=== PATIENT | female | born 1980 | race Caucasian/White ===

== ENCOUNTER 2016-07-02 15:15 | Observation (INO) | payer MEDICARE ==
[2016-07-02 15:31] VITALS: BMI 38.7
[2016-07-02 15:34] VITALS: TEMP 98.8
[2016-07-02 16:32] LABS: ADD MANUAL DIFF? NO
--- NOTE | 2016-07-02 16:42 | ED PDOC ---
Arrival/HPI - General Historian: Patient - General Chief Complaint: Dizziness/Lightheaded Time Seen by Provider: 07/02/16 15:36 - History of Present Illness Narrative History of Present Illness (Text): 07/02/16 16:38 This is a 36yo female with history of hypertension who present with complaint of elevated BP and tingling of her b/l upper extremity. states her BP was 160/ 120 in a store this afternoon. She felt dizzy, warm and tingling sensation on her b/l arms then. Notes that she had elevated BP with her last , July last year, but have not been on antihypertensive since then. she also notes "sticking" like chest pain intermittently sicne yesterday. the last time she had chest pain was this morning. Also notes right lower leg pain. Notes chronic left lower leg pain. Did not take any medication. Denies diaphoresis, nausea, vomiting, recent travel, ABDUL, orthopnea, cough, focal neurological weakness, abdominal pain, visual changes, any other complaint. (Darryl Medrano) Past Medical History - Provider Review Nursing Documentation Reviewed: Yes - Psychiatric Hx Substance Use: No - Surgical History Hx Section: Yes Family/Social History - Physician Review Nursing Documentation Reviewed: Yes Family/Social History: Unknown Family HX Smoking Status: Never Smoked Hx Alcohol Use: No Hx Substance Use: No Allergies/Home Meds Allergies/Adverse Reactions: Allergies No Known Allergies Allergy (Verified 07/02/16 15:34) Home Medications: Home Meds Medication Instructions Recorded Confirmed No Known Home Med 07/02/16 07/02/16 Review of Systems - Physician Review All systems were reviewed & negative as marked: Yes - Review of Systems Constitutional: Normal Eyes: Normal ENT: Normal Respiratory: Normal Cardiovascular: Chest Pain Gastrointestinal: Normal Genitourinary Female: Normal Musculoskeletal: Normal Skin: Normal Neurological: Other (PAresthesia) Endocrine: Normal Hemo/Lymphatic: Normal Psychiatric: Normal Physical Exam Vital Signs Reviewed: Yes Temperature: Afebrile Blood Pressure: Hypertensive Pulse: Tachycardic Respiratory Rate: Normal Appearance: Positive for: Well-Appearing, Non-Toxic, Comfortable Pain Distress: None Mental Status: Positive for: Alert and Oriented X 3 Finger Stick Blood Glucose: 82 - Systems Exam Head: Present: Atraumatic, Normocephalic Pupils: Present: PERRL Extroacular Muscles: Present: EOMI Conjunctiva: Present: Normal Mouth: Present: Moist Mucous Membranes Neck: Present: Normal Range of Motion Respiratory/Chest: Present: Clear to Auscultation, Good Air Exchange. No: Respiratory Distress, Accessory Muscle Use Cardiovascular: Present: Regular Rate and Rhythm, Normal S1, S2. No: Murmurs Abdomen: Present: Normal Bowel Sounds. No: Tenderness, Distention, Peritoneal Signs Back: Present: Normal Inspection Upper Extremity: Present: Normal Inspection. No: Cyanosis, Edema Lower Extremity: Present: Normal Inspection. No: Edema, CALF TENDERNESS Neurological: Present: GCS=15, CN II-XII Intact, Speech Normal, Motor Func Grossly Intact, Normal Sensory Function, Normal Cerebellar Funct, Norm Deep Tendon Reflexes, Memory Normal, Other (No focal neurological deficit) Skin: Present: Warm, Dry, Normal Color. No: Rashes Psychiatric: Present: Alert, Oriented x 3, Normal Insight, Normal Concentration Medical Decision Making ED Course and Treatment: 07/05/16 12:55 First pat CE was negative and she neurological intact while in ED. Her BP however remain elevated. All imaging was negative. Pt however need admission for further evaluation and treatment. Hence history of sudden elevated BP with chest pain. Case was DW Dr. Pineda, and she accepted pt into her service. Result and plan was DW the pt and she agreed. (Darryl Medrano) - Lab Interpretations Lab Results: 07/02/16 16:13 07/02/16 16:13 Lab Results 07/02/16 17:30: Urine Color Yellow, Urine Appearance Clear, Urine pH 6.5, Ur Specific [place] 1.020, Urine Protein Trace H, Urine Glucose (UA) Negative, Urine Ketones 15 H, Urine Blood Negative, Urine Nitrate Negative, Urine Bilirubin Negative, Urine Urobilinogen 0.2, Ur Leukocyte Esterase Negative, Urine RBC 2 - 5, Urine WBC 1 - 3, Ur Epithelial Cells 0 - 2, Urine Bacteria Small 07/02/16 16:13: Sodium 137, Potassium 3.8, Chloride 101, Carbon Dioxide 27, Anion Gap 13, BUN 8, Creatinine 0.7, Est GFR ( Amer) > 60, Est GFR (Non- Af Amer) > 60, Random Glucose 83, Calcium 8.5, Magnesium 1.5 L, Total Bilirubin 0.7, AST 20, ALT 24, Alkaline Phosphatase 68, Lactate Dehydrogenase 497, Total Creatine Kinase 60, Troponin I < 0.01, Total Protein 7.5, Albumin 3.9, Globulin 3.6, Albumin/Globulin Ratio 1.1, Triglycerides 68, Cholesterol 178, LDL Cholesterol Direct 96, HDL Cholesterol 51 07/02/16 16:13: PT 10.4, INR 0.96, APTT 27.5, D-Dimer, Quantitative 0.22 07/02/16 16:13: WBC 3.1 L, RBC 4.33, Hgb 12.2, Hct 36.2, MCV 83.6, MCH 28.2, MCHC 33.7, RDW 12.4, Plt Count 232, MPV 11.4 H, Gran % 51.5, Lymph % (Auto) 40.3 H, [place] % (Auto) 7.0 H, Eos % (Auto) 0.6 L, Baso % (Auto) 0.6, Gran # 1.61 , Lymph # 1.3, [place] # 0.2, Eos # 0.0, Baso # 0.02 07/02/16 15:42: POC Glucose (mg/dL) 82 - RAD Interpretation Radiology Orders: 07/02/16 15:52 DUPLEX LOWER EXTRM VEIN BILAT [US] Stat 07/02/16 15:53 CHEST ONE VIEW [RAD] Stat 07/02/16 16:03 HEAD W/O CONTRAST [CT] Stat - Medication Orders Current Medication Orders: Discontinued Medications Acetaminophen (Tylenol 325mg Tab) 650 mg PO Q6H PRN PRN Reason: Fever >100.4 F Amlodipine Besylate (Norvasc) 5 mg PO DAILY LYNNE Aspirin (Aspirin Chewable) 81 mg PO DAILY LYNNE Aspirin (Aspirin Chewable) 81 mg PO STAT STA Stop: 07/02/16 22:42 Last Admin: 07/02/16 22:47 Dose: 81 mg Iohexol (Omnipaque 350 150 Ml) Confirm Administered Dose 150 ml .ROUTE .STK-MED ONE Stop: 07/02/16 22:53 Metoprolol Tartrate (Lopressor) Confirm Administered Dose 50 mg .ROUTE .STK-MED ONE Stop: 07/02/16 22:14 Last Admin: 07/02/16 22:28 Dose: 50 mg Metoprolol Tartrate (Lopressor) 50 mg PO STAT STA Stop: 07/02/16 22:43 Last Admin: 07/02/16 22:46 Dose: Pantoprazole Sodium (Protonix Ec Tab) 40 mg PO 0630 [facility] Disposition/Present on Arrival - Present on Arrival Any Indicators Present on Arrival: No History of DVT/PE: No History of Uncontrolled Diabetes: No Urinary Catheter: No History of Decub. Ulcer: No History Surgical Site Infection Following: None - Disposition Have Diagnosis and Disposition been Completed?: Yes Disposition Time: 21:00 - Disposition Diagnosis: Chest pain, Hypertension Disposition: HOSPITALIZED Condition: FAIR
[2016-07-02 16:46] LABS: BASO # 0.02 K/mm3 (0.0-2.0); BASO % 0.6 % (0.0-3.0); EOS % 0.6 % (1.5-5.0); GRAN # 1.61 (1.4-6.5); GRAN % 51.5 % (50.0-68.0); HEMATOCRIT 36.2 % (36.0-48.0); LYMPH # 1.3 (1.2-3.4); LYMPH % 40.3 % (22.0-35.0); MEAN CELL VOLUME 83.6 fL (80.0-105.0); MEAN CORPUSCULAR HEMOGLOBIN 28.2 pg (25.0-35.0); MEAN CORPUSCULAR HGB CONC 33.7 g/dl (31.0-37.0); MEAN PLATELET VOLUME 11.4 fl (7.0-11.0); MONO # 0.2 (0.1-0.6); PLATELET COUNT 232 10^3/uL (120.0-450.0); RED CELL DISTRIBUTION WIDTH 12.4 % (11.5-14.5); WHITE BLOOD COUNT 3.1 10^3/ul (4.5-11.0)
[2016-07-02 16:58] LABS: ALB/GLOB RATIO 1.1 (1.1-1.8); ALKALINE PHOSPHATASE 68 U/L (38-133); ALT/SGPT 24 U/L (7-56); AST/SGOT 20 U/L (15-39); BILIRUBIN,TOTAL 0.7 mg/dL (0.2-1.3); BLOOD UREA NITROGEN 8 mg/dL (7-21); CALCIUM 8.5 mg/dL (8.4-10.5); CARBON DIOXIDE 27 mmol/L (21-33); CHLORIDE 101 mmol/L (98-107); GFR AFRICAN-AMERICAN > 60; GLUCOSE,RANDOM 83 mg/dL (70-110); MAGNESIUM 1.5 mg/dL (1.7-2.2); POTASSIUM 3.8 mmol/L (3.6-5.0); SODIUM 137 mmol/L (132-148); TOTAL PROTEIN 7.5 g/dL (5.8-8.3)
[2016-07-02 16:59] LABS: INR 0.96 (0.93-1.08); PARTIAL THROMBOPLASTIN TIME 27.5 Seconds (23.7-30.8)
[2016-07-02 17:01] LABS: D DIMER 0.22 mg/L FEU (0-0.50)
[2016-07-02 17:10] LABS: TROPONIN I < 0.01 ng/mL
[2016-07-02 18:27] LABS: URINE APPEARANCE CLEAR (CLEAR); URINE COLOR YELLOW (YELLOW)
--- NOTE | 2016-07-02 18:35 | CT ---
PROCEDURE: CT HEAD WITHOUT CONTRAST. HISTORY: paresthesia/hypertension COMPARISON: None available. TECHNIQUE: Axial computed tomography images were obtained through the head/brain without intravenous contrast. Radiation dose: Total exam DLP = 725.84 mGy-cm. This CT exam was performed using one or more of the following dose reduction techniques: Automated exposure control, adjustment of the mA and/or kV according to patient size, and/or use of iterative reconstruction technique. FINDINGS: HEMORRHAGE: No intracranial hemorrhage. BRAIN: No mass effect or edema. The crow-white matter differentiation appears intact.Please note that MRI with diffusion imaging is more sensitive in the detection of acute ischemic event. VENTRICLES: No hydrocephalus. CALVARIUM: Unremarkable. PARANASAL SINUSES: Unremarkable as visualized. No significant inflammatory changes. MASTOID AIR CELLS: Unremarkable as visualized. No inflammatory changes. OTHER FINDINGS: None. IMPRESSION: No acute intracranial pathology identified.
[2016-07-02 18:38] LABS: PH,URINE 6.5 (4.7-8.0); URINE BILIRUBIN NEGATIVE (NEGATIVE); URINE BLOOD NEGATIVE (NEGATIVE); URINE GLUCOSE (UA) NEGATIVE (NEGATIVE); URINE KETONE 15 mg/dL (NEGATIVE); URINE LEUKOCYTE ESTERASE NEGATIVE Leu/uL (NEGATIVE); URINE PROTEIN TRACE mg/dL (<30 mg/dL); URINE UROBILINOGEN 0.2 E.U./dL (<1 E.U./dL)
[2016-07-02 18:40] LABS: URINE BACTERIA SMALL (NEG); URINE EPITHELIAL CELLS 0 - 2 /hpf (0-5)
--- NOTE | 2016-07-02 18:48 | RAD ---
HISTORY: chest pain COMPARISON: None available. TECHNIQUE: Chest, one view. FINDINGS: Examination limited by habitus. LUNGS: No focal consolidation. Please note that chest x-ray has limited sensitivity for the detection of pulmonary masses. PLEURA: No significant pleural effusion identified. No definite pneumothorax . CARDIOVASCULAR: The cardiomediastinal silhouette appears within normal limits of size. OSSEOUS STRUCTURES: No acute osseous abnormality identified. VISUALIZED UPPER ABDOMEN: Unremarkable. OTHER FINDINGS: None. IMPRESSION: No focal consolidation, significant pleural effusion, or definite pneumothorax identified.
--- NOTE | 2016-07-02 19:08 | US ---
HISTORY: Leg pain and swelling. Evaluate for DVT PHYSICIAN(S): Eloy Lopez MD. TECHNIQUE: Duplex sonography and color-flow Doppler with graded compression were used to evaluate the deep venous systems of both lower extremities. FINDINGS: The visualized deep venous systems of both lower extremities are sonographically normal and compressible. Normal wave forms and augmentation are seen. There is no sonographic evidence for deep venous thrombosis in the visualized segments of both lower extremities. IMPRESSION: No sonographic evidence for deep venous thrombosis in the visualized segments of both lower extremities.
[2016-07-02 20:24] VITALS: RESP 17
--- NOTE | 2016-07-02 22:18 | CARD ---
APPROVED REPORT EKG Measurement Heart [id number] <Conclusion> Normal sinus rhythm Normal ECG
[2016-07-02 22:28] VITALS: O2SAT 96
[2016-07-02 22:29] VITALS: PULSE 91
[2016-07-02 22:48] LABS: CHOLESTEROL 178 mg/dL (130-200)
[2016-07-02 22:53] VITALS: BP 152/97
--- NOTE | 2016-07-02 23:33 | HP ---
HISTORY OF PRESENT ILLNESS: The patient is a 36-year-old patient of Dr. Chin. I am covering for them. Came to Emergency Room because of feeling dizzy, lightheaded and also having some chest discom fort intermittently since morning and had tingling sensation in both legs, both arms, left more than the right and also having pain in the right leg. The patient states she was diagnosed with hypertens ion during last year, but she was never on antihypertensive. Then, this morning when she w as out and shopping, she felt weak and dizzy. She went to check her blood pressure and it was 160/12 0. Says now she is feeling dizzy and lightheaded, having tingling and warm sensation in her head and neck area. PAST MEDICAL HISTORY: She has significant past medical history of gestational hypertension. ALLERGIES: Not allergic to any medications. MEDICATIONS AT HOME: She is not taking any medication at home. SOCIAL HISTORY: She denies smoking, drinking or alcohol use or abuse. REVIEW OF SYSTEMS: Significant for having some headache, discomfort and tingling that has almost res olved. PHYSICAL EXAMINATION: GENERAL: She is awake and alert, communicative. VITAL SIGNS: She is afebrile, pulse 105, respirations 16, blood pressure 135/91. LUNGS: Bilateral fair airflow, no rhonchi or crackle. HEART: S1, S2 audible. ABDOMEN: Soft, nontender, no rebound, no guarding. NEUROLOGIC: The patient is awake and alert, communicative, moves all extremities. EXTREMITIES: Bilateral leg, no edema. LABORATORY DATA: Urinalysis is negative. WBC 3.1, hemoglobin 12, hematocrit 36, platelet 232. PT 1 0.4, INR 0.96, PTT 27.5. D-dimer 0.22. Chemistry: Sodium 137, potassium 3.9, chloride 101, CO2 of 27, BUN 8, creatinine 0.7, blood sugar of 83, magnesium 1.5. EKG is unremarkable. Bilateral leg nan ous Doppler is negative for DVT. CT scan of the head is negative. X-ray chest, no acute findings, n ormal. ASSESSMENT: 1. Chest pain, rule out coronary syndrome. 2. Uncontrolled hypertension. 3. Dizziness. PLAN: We will start patient on antihypertensives, will monitor cardiac enzymes. If she remains stab le, early discharge in a.m. Cardiology evaluation by Dr. Jenkins will be requested. Joyce Pineda MD cc: [id number] TT: 07/02/2016 23:32:47 mn
[2016-07-03] MEDS ORDERED: Pantoprazole 40 mg EC Tab PO SCH (06:30)
== END 2016-07-03 13:44 | disposition home or self-care (01) ==
LOC: ED 15:15 → MERGE 20:00 → ERH 20:00 → INTOOBSV 20:00 → ERH 22:12 → 2RSO 07-03 02:20
PROVIDERS: ADMIT Internal Medicine; ATTEND Internal Medicine
DX: R07.9 Chest pain, unspecified (principal); I10 Essential (primary) hypertension; R00.0 Tachycardia, unspecified; R40.2412 Glasgow coma scale score 13-15, at arrival to emergency department; R42 Dizziness and giddiness; R51 Headache; R20.2 Paresthesia of skin
CPT/HCPCS: 70450; 71010; 80053; 80061; 81001; 82550; 82948; 83615; 83735; 84484; 85025; 85378; 85610; 85730; 93005; 93970; 99285; G0378